=== PATIENT | male | born 1965 | race Caucasian/White ===

== ENCOUNTER 2018-11-24 15:56 | Outpatient (CLI) | payer OTHER ==
--- NOTE | 2018-11-25 08:31 | MRI ---
MRI OF LEFT ELBOW PERFORMED WITHOUT CONTRAST ENHANCEMENT: HISTORY: Elbow injury while pulling a heavy object. FINDINGS: The ulnar collateral ligament and common flexor tendon are normal in appearance. There is tendinosis of the common extensor tendon. The lateral collateral ligament and LUCL are all intact. No articular cartilage abnormalities or any significant joint effusion. The triceps tendon is intact. There is a complete tear of the biceps tendon. The tendon is coiled and retracted by approximately 8 cm with associated injury of the lacertus fibrosis. There are no other significant findings. IMPRESSION: Complete biceps tendon tear as described above. POS: [facility]
== END 2018-11-24 15:57 | disposition home or self-care (01) ==
LOC: SCSMRI 15:56
PROVIDERS: ATTEND Emergency Medicine
DX: S46.212A Strain of muscle, fascia and tendon of other parts of biceps, left arm, initial encounter (principal)